=== PATIENT | female | born 1965 ===

== ENCOUNTER 2021-05-07 06:07 | Day surgery (SDC) | payer OTHER ==
[~2021-05-07 06:07] MED LIST: ATORVASTATIN CA40 MG; CENTRUM SILVER1 EAC3; GLIMEPIRIDE4 M1; GLUMETZA1000 MG; HUMULIN R100 UNIT/1; PROTONIX40 M1; TOUJEO; ZESTRIL5 MG
== END 2021-05-07 14:00 | disposition home or self-care (01) ==
LOC: CIR.AMB 06:07
PROVIDERS: ATTEND Orthopaedic Surgery Hand Surgery
DX: M75.21 Bicipital tendinitis, right shoulder (principal); Z20.822 Contact with and (suspected) exposure to COVID-19

== ENCOUNTER 2021-12-17 05:25 | Day surgery (SDC) | payer OTHER ==
[~2021-12-17] VITALS: Ht 160 cm; Wt 73.0 kg
[~2021-12-17 05:25] MED LIST changes: +TOUJEO MAX300 UNIT/1
== END 2021-12-17 11:00 | disposition home or self-care (01) ==
LOC: CIR.AMB 05:25
PROVIDERS: ATTEND Orthopaedic Surgery Hand Surgery
DX: M65.341 Trigger finger, right ring finger (principal); M65.331 Trigger finger, right middle finger; M65.351 Trigger finger, right little finger; Z20.822 Contact with and (suspected) exposure to COVID-19; Z88.8 Allergy status to other drugs, medicaments and biological substances; Z91.018 Allergy to other foods; I10 Essential (primary) hypertension; Z79.84 Long term (current) use of oral hypoglycemic drugs; E11.9 Type 2 diabetes mellitus without complications